=== PATIENT | male | born 2000 | race Hispanic/Latino ===

== ENCOUNTER 2022-12-22 10:33 | Emergency (ER) | payer OTHER ==
--- NOTE | 2022-12-22 10:39 | ERPHSYRPT ---
- History of Present Illness Time Seen by Provider: 12/22/22 10:39 Source: patient Exam Limitations: language barrier Physician History: This is a 22-year-old male who was using a knife to cut asparagus and lacerated his right leg approximately 2.5 cm in a vertical orientation. There is no recent history of tetanus injection. Occurred just prior to arrival. He takes no medications chronically and has no known drug allergies. Method of Injury: other (Accidental cut with a knife) Occurred: just prior to arrival Quality: sharpness Severity of Pain-Max: mild Severity of Pain-Current: mild Lower Extremities Pain: leg: right Modifying Factors: Improves With: nothing Associated Symptoms: none Allergies/Adverse Reactions: No Known Drug Allergies Allergy (Unverified 12/22/22 10:56) Home Medications: No Reportable Medications [No Reported Medications] 12/22/22 [History] Travel Risk - International Travel Have you traveled outside of the country in past 3 weeks: No - Coronavirus Screening Are you exhibiting any of the following symptoms?: No Close contact with a COVID-19 positive Pt in past 14-21 Days: No - Review of Systems Constitutional: No Symptoms Eyes: No Symptoms Ears, Nose, & Throat: No Symptoms Respiratory: No Symptoms Cardiac: No Symptoms Abdominal/Gastrointestinal: No Symptoms Genitourinary Symptoms: No Symptoms Musculoskeletal: Injury Skin: Other (Right lower leg laceration 2.5 cm x 1) Neurological: No Symptoms Psychological: No Symptoms Endocrine: No Symptoms Hematologic/Lymphatic: No Symptoms Immunological/Allergic: No Symptoms All Other Systems: Reviewed and Negative - Past Medical History Pertinent Past Medical History: Yes - Past Surgical History Past Surgical History: Yes - Nursing Vital Signs Nursing Vital Signs: Initial Vital Signs Temperature 51 F 12/22/22 10:44 Pulse Rate 52 L 12/22/22 10:44 Respiratory Rate 18 12/22/22 10:44 Blood Pressure 119/83 12/22/22 10:44 O2 Sat by Pulse Oximetry 100 12/22/22 10:44 Pain Scale Pain Intensity 5 - Physical Exam General Appearance: no apparent distress, alert, anxiety Eyes, Ears, Nose, Throat Exam: normal ENT inspection, moist mucous membranes Neck Exam: normal inspection, non-tender, supple, full range of motion Cardiovascular/Respiratory Exam: chest non-tender, no respiratory distress Gastrointestinal/Abdominal Exam: non-tender Back Exam: normal inspection, normal range of motion, CVA tenderness Hips Exam: bilateral: non-tender, normal inspection, normal range of motion, no evidence of injury Legs Exam: right leg: soft tissue tenderness (Below the knee vertically oriented 2.5 cm laceration. No foreign body. No active bleeding.), left leg: non- tender, normal inspection, normal range of motion, no evidence of injury Knees Exam: bilateral knee: non-tender, normal inspection, normal range of motion, no evidence of injury Ankle Exam: bilateral ankle: non-tender, normal inspection, normal range of motion, no evidence of injury Foot Exam: bilateral foot: non-tender, normal inspection, normal range of motion, no evidence of injury Neuro/Tendon Exam: normal sensation, normal motor functions, normal tendon functions, responds to pain, no evidence tendon injury Mental Status Exam: alert, oriented x 3, cooperative Skin Exam: laceration (The above) SpO2 Interpretation: normal O2 Delivery: Room Air Procedures - Laceration/Wound Repair Right Lower Other Time of Procedure: 11:10 Wound Location: Right, lower leg (Low the knee) Wound Length (cm): 2.5 Wound's Depth, Shape: superficial, linear (Vertically oriented) Wound Explored: clean (Evaluation and exploration was performed to the base in a bloodless field and there is no foreign body noted) Irrigated: Yes Hibiclens Prep: Yes Wound Repaired With: [place] (4 etra were placed) Progress: 12/22/22 11:22 Patient tolerated procedure well. There were no complications. There was cleaned and dried antibiotic ointment followed by nonstick bandage and a pressure dressing was applied. - Course Nursing assessment & vital signs reviewed: Yes Ordered Tests: Medication Summary Discontinued Medications Generic Name Dose Route Start Last Admin Trade Name Freq PRN Reason Stop Dose Admin Hydrocodone Bitart/Acetaminophen Confirm 12/22/22 11:03 Hydrocodone/Apap 5/325 1 Tab Tablet Administered 12/22/22 11:04 Dose 1 tab .ROUTE .STK-MED ONE Bacitracin Zinc 0.9 each 12/22/22 10:55 12/22/22 11:04 Bacitracin Packet 1 Each Pckt TP 12/22/22 10:56 0.9 each STAT ONE Administration Bacitracin Zinc Confirm 12/22/22 10:55 Bacitracin Packet 1 Each Pckt Administered 12/22/22 10:56 Dose 1 each .ROUTE .STK-MED ONE Diphtheria/Tetanus/Acell Pertussis Confirm 12/22/22 10:56 Tdap --Diph,Pertuss(Acell),Tet Vac/Pf 0.5 Ml Vial Administered 12/22/22 10:57 Dose 0.5 ml IM .STK-MED ONE - Progress Progress: improved Progress Note: 12/22/22 11:22 This patient's medical issue is 1 of low complexity. The level of complexity in the work-up performed is based on review of the patient's past medical history, review of the patient's medication list, review of the patient's drug allergy list, history of present illness and findings on physical examination. Patient does not require any laboratory studies or radiographic studies. The laceration site was approximated readily with tera after cleansing and irrigating out the area well. Patient was told to return to emergency department 8 days for staple removal. Counseled pt/family regarding: diagnosis, need for follow-up Medical Desision Making - Diagnostic Testing Diagnostic test were ordered, analyzed, and reviewed by me: No - Risk of complications Minimal Risk: Minimal risk of morbidity - Departure Departure Disposition: Home Clinical Impression: Leg laceration Condition: Stable Critical Care Time: No Additional Instructions: Keep the current dressing in place for 24 hours. After 24 hours may remove the dressing and wash the site with soap and water daily thereafter. After each washing dry the site with a history department chair or blot dry. Put a thin layer of antibiotic ointment on the staple repair site and a nonstick gauze and change as needed. Staple removal in 8 days. Use Tylenol and ibuprofen for pain control.
[2022-12-22 10:55] VITALS: PULSE 52; O2SAT 100
[2022-12-22] MEDS ORDERED: BACIGUENT PACKET ONE (10:55)
[2022-12-22] MEDS ORDERED: BACIGUENT PACKET TP ONE (10:55)
[2022-12-22] MEDS ORDERED: Adacel Vial IM ONE (10:56)
[2022-12-22] MEDS ORDERED: NORCO 5/325 MG ONE (11:03)
[2022-12-22] MEDS ORDERED: NORCO 5/325 MG PO ONE (11:24)
[2022-12-22 11:26] VITALS: BP 102/65
== END 2022-12-22 11:32 | disposition home or self-care (01) ==
LOC: ED 10:33
DX: S81.811A Laceration without foreign body, right lower leg, initial encounter (principal); W26.0XXA Contact with knife, initial encounter; Y93.H2 Activity, gardening and landscaping; Y92.73 Farm field as the place of occurrence of the external cause; Y99.0 Civilian activity done for income or pay
CPT/HCPCS: 12001; 90471; 90715; 99283; A9270-GY